=== PATIENT | female | born 1965 | race Caucasian/White ===

== ENCOUNTER 2018-02-05 14:21 | Observation (INO) | payer SELFPAY ==
[~2018-02-05] VITALS: Ht 162.6 cm; Wt 68.0 kg
[~2018-02-05 14:21] MED LIST: ALBU8I INH; CEPH500 PO; LEVE500 PO
[2018-02-05 14:53] VITALS: BP 112/78; PULSE 86; RESP 16; TEMP 98; O2SAT 99
[2018-02-05 16:01] LABS: AUTOMATED NEUTROPHIL # 5.9 TH/MM3 (1.8-7.7); BASOPHIL % 0.6 % (0.0-2.0); EOSINOPHIL % 0.5 % (0.0-4.0); HEMATOCRIT 43.2 % (35.0-46.0); HEMOGLOBIN 15.1 GM/DL (11.6-15.3); LYMPH % 15.9 % (9.0-44.0); LYMPHOCYTE # 1.3 TH/MM3 (1.0-4.8); MEAN CORPUSCULAR HEMOGLOBIN 30.4 PG (27.0-34.0); MEAN CORPUSCULAR HGB CONC 34.9 % (32.0-36.0); MEAN PLATELET VOLUME 7.9 FL (7.0-11.0); MONOCYTE # 0.6 TH/MM3 (0-0.9); PLATELET COUNT 201 TH/MM3 (150-450); RED BLOOD COUNT 4.96 MIL/MM3 (4.00-5.30); WHITE BLOOD COUNT 7.9 TH/MM3 (4.0-11.0)
[2018-02-05 16:09] LABS: ALBUMIN 4.6 GM/DL (3.4-5.0); ALT (GPT) 16 U/L (10-53); AST (GOT) 16 U/L (15-37); BICARBONATE 21.9 MEQ/L (21.0-32.0); BLOOD UREA NITROGEN 14 MG/DL (7-18); CALCIUM 9.3 MG/DL (8.5-10.1); CHLORIDE 103 MEQ/L (98-107); CREATININE 0.87 MG/DL (0.50-1.00); GLOMERULAR FILTRATION RATE 69 ML/MIN (>89); GLUCOSE,RANDOM 90 MG/DL (74-106); SODIUM (NA) 137 MEQ/L (136-145)
[2018-02-05 16:12] LABS: ALKALINE PHOSPHATASE 80 U/L (45-117); TOTAL BILIRUBIN ADULT 0.6 MG/DL (0.2-1.0); TOTAL PROTEIN 8.1 GM/DL (6.4-8.2)
--- NOTE | 2018-02-05 17:23 | RADRPT ---
EXAM DATE/TIME: 02/05/2018 17:02 [place] COMPARISON: CT BRAIN W/O CONTRAST, January 19, 2016, 19:06. INDICATIONS : Altered mental status for three days. RADIATION DOSE: 35.73 CTDIvol (mGy) MEDICAL HISTORY : Cerebrovascular disease. SURGICAL HISTORY : Hernia sx. ENCOUNTER: Initial ACUITY: 3 days PAIN SCALE: 5/10 LOCATION: Bilateral cranial TECHNIQUE: Multiple contiguous axial images were obtained of the head. Using automated exposure control and adj ustment of the mA and/or kV according to patient size, radiation dose was kept as low as reasonably a chievable to obtain optimal diagnostic quality images. DICOM format image data is available electro nically for review and comparison. FINDINGS: CEREBRUM: The ventricles are normal for age. No evidence of midline shift, mass lesion, hemorrhage or acute in farction. No extra-axial fluid collections are seen. POSTERIOR FOSSA: The cerebellum and brainstem are intact. The 4th ventricle is midline. The cerebellopontine angle i s unremarkable. EXTRACRANIAL: The visualized portion of the orbits is intact. SKULL: The calvaria is intact. No evidence of skull fracture. CONCLUSION: 1. No acute intracranial abnormality identified. Ozzy Hearn MD on February 05, 2018 at 17:19 Board Certified Radiologist. This report was verified electronically.
--- NOTE | 2018-02-05 17:40 | PD ---
HPI . Dizziness and syncope Chief Complaint: Dizziness Time Seen by Provider: 16:39 Travel History International Travel<30 days: No Contact w/Intl Traveler<30days: No Traveled to known affect area: No History of Present Illness HPI This patient presents with dizziness and syncope. She had the onset of symptoms yesterday. Her symptoms have included headache, diaphoresis followed by syncope, nausea, blurred vision and global weakness. She has not had any known blood loss. She states that her symptoms are exacerbated by standing and improved by lying down. PFSH Past Medical History Asthma: Yes Blood Disorders: No Bipolar Disorder: Yes Anxiety: No Depression: Yes Cancer: No Cardiovascular Problems: No Chemotherapy: No COPD: Yes Cerebrovascular Accident: Yes Diabetes: No Diminished Hearing: No Endocrine: No Gastrointestinal Disorders: Yes Glaucoma: No Genitourinary: No Headaches: Yes Immune Disorder: No Implanted Vascular Access Dvce: No Musculoskeletal: No Neurologic: Yes ([facility] 01/19/16) Psychiatric: Yes Reproductive: No Respiratory: Yes Integumentary: Yes (cellulitis of left leg) Immunizations Current: Yes Migraines: Yes Radiation Therapy: No Schizophrenia: Yes Seizures: No Sleep Apnea: No Thyroid Disease: No ?: Not Menopausal: Yes : 3 Para: 3 Miscarriage: 1 : 0 Ovarian Cysts: Yes (LEFT SIDE) Tubal Ligation: No Past Surgical History Abdominal Surgery: Yes (hernia (@ 1 month old)) AICD: No Arteriovenous Shunt: No Body Medical Devices: percings Insulin Pump: No Joint Replacement: No Pacemaker: No Social History Alcohol Use: No Tobacco Use: Yes Substance Use: Yes Allergies-Medications (Allergen,Severity, Reaction): Coded Allergies: morphine (Unverified Allergy, Severe, RASH, 07/07/17) penicillin G (Unverified Allergy, Severe, "HIVES & HARD TO BREATHE", ) vancomycin (Unverified Allergy, Intermediate, Rash, 07/07/17) Reported Meds & Prescriptions Reported Meds & Active Scripts Active Review of Systems Except as stated in HPI: all other systems reviewed are Neg General / Constitutional: No: Fever, Chills Eyes: Positive: Blurred Vision HENT: Positive: Headaches, Lightheadedness Gastrointestinal: Positive: Nausea Neurologic: Positive: Weakness Physical Exam Narrative GENERAL: Pale appearing SKIN: warm/dry. HEAD: Normocephalic. Atraumatic. EYES: Pupils equal and round. No scleral icterus. No injection or drainage. Her sclera are pink. ENT: No nasal bleeding or discharge. Mucous membranes pink and moist. NECK: Trachea midline. Full range of motion without pain.. CARDIOVASCULAR: Regular rate and rhythm. Heart sounds are normal. RESPIRATORY: No accessory muscle use. Clear to auscultation. Breath sounds equal bilaterally. GASTROINTESTINAL: Abdomen soft. Nontender. Bowel sounds present. Nondistended. RECTAL: Brown stool in the rectal vault. MUSCULOSKELETAL: No obvious deformities. NEUROLOGICAL: Awake and alert. No obvious cranial nerve deficits. Motor grossly within normal limits. Normal speech. PSYCHIATRIC: Appropriate mood and affect; insight and judgment normal. Data Data Last Documented VS Vital Signs Date Time Temp Pulse Resp B/P (MAP) Pulse Ox O2 Delivery O2 Flow Rate FiO2 02/05/18 14:53 98.0 86 16 112/78 (89) 99 Orders Orders Electrocardiogram (02/05/18 14:56) Complete Blood Count With Diff (02/05/18 14:56) Comprehensive Metabolic Panel (02/05/18 14:56) Ct Brain W/O Iv Contrast(Rout) (02/05/18 16:39) Troponin I (02/05/18 16:39) D-Dimer (02/05/18 16:39) Sodium Chlor 0.9% 1000 Ml Inj (Ns 1000 M (02/05/18 17:45) Prochlorperazine Inj (Compazine Inj) (02/05/18 17:45) Diphenhydramine Inj (Benadryl Inj) (02/05/18 17:45) Labs Laboratory Tests Test 02/05/18 15:12 White Blood Count 7.9 TH/MM3 Red Blood Count 4.96 MIL/MM3 Hemoglobin 15.1 GM/DL Hematocrit 43.2 % Mean Corpuscular Volume 87.0 FL Mean Corpuscular Hemoglobin 30.4 PG Mean Corpuscular Hemoglobin Concent 34.9 % Red Cell Distribution Width 13.0 % Platelet Count 201 TH/MM3 Mean Platelet Volume 7.9 FL Neutrophils (%) (Auto) 75.0 % Lymphocytes (%) (Auto) 15.9 % Monocytes (%) (Auto) 8.0 % Eosinophils (%) (Auto) 0.5 % Basophils (%) (Auto) 0.6 % Neutrophils # (Auto) 5.9 TH/MM3 Lymphocytes # (Auto) 1.3 TH/MM3 Monocytes # (Auto) 0.6 TH/MM3 Eosinophils # (Auto) 0.0 TH/MM3 Basophils # (Auto) 0.0 TH/MM3 CBC Comment DIFF FINAL Differential Comment Blood Urea Nitrogen 14 MG/DL Creatinine 0.87 MG/DL Random Glucose 90 MG/DL Total Protein 8.1 GM/DL Albumin 4.6 GM/DL Calcium Level 9.3 MG/DL Alkaline Phosphatase 80 U/L Aspartate Amino Transf (AST/SGOT) 16 U/L Alanine Aminotransferase (ALT/SGPT) 16 U/L Total Bilirubin 0.6 MG/DL Sodium Level 137 MEQ/L Potassium Level 3.5 MEQ/L Chloride Level 103 MEQ/L Carbon Dioxide Level 21.9 MEQ/L Anion Gap 12 MEQ/L Estimat Glomerular Filtration Rate 69 ML/MIN MDM Medical Decision Making Medical Screen Exam Complete: Yes Emergency Medical Condition: Yes Interpretation(s) EKG shows a sinus rhythm. No acute ST segment changes. Differential Diagnosis My differential diagnosis of syncope includes but is not limited to cardiac arrhythmia, hypovolemia, anemia, neurological catastrophe, vasovagal response Narrative Course This patient presents for the evaluation of weakness with a syncopal episode today. The syncopal episode was preceded by diaphoresis and nausea. In addition to feeling weak and dizzy, she has had a headache and blurred vision. Routine labs were done in triage but did not include a troponin or a d-dimer. CBC & BMP Diagram 02/05/18 15:12 Total Protein 8.1, Albumin 4.6, Calcium Level 9.3, Alkaline Phosphatase 80, Aspartate Amino Transf (AST/SGOT) 16, Alanine Aminotransferase (ALT/SGPT) 16, Total Bilirubin 0.[address] 02/05/18 1639 Signed Impressions: Service Date/Time: Monday, February 05, 2018 17:02 - CONCLUSION: 1. No acute intracranial abnormality identified. Ozzy Hearn MD This patient's care is being turned over to Dr. Partida pending her d-dimer and troponin. [facility] Point of Care Internal Pos. & Neg. Controls: Passed Gastric Specimen Occult Blood: Negative Diagnosis Primary Impression: Syncope Qualified Codes: R55 - Syncope and collapse Condition: Stable Gaby Banerjee MD Feb 05, 2018 17:40
[2018-02-05] MEDS ORDERED: PROCHLORPERAZINE INJ 10 MG/2 ML VIAL IV PUSH ONE (17:45)
[2018-02-05] MEDS ORDERED: diphenhydrAMINE HCL 50 MG/ML VIAL IV PUSH ONE (17:45)
[2018-02-05] MEDS ORDERED: SODIUM CHLOR 0.9% 1000 ML INJ 1,000 ML IV ONE (17:45)
[2018-02-05 17:53] VITALS: BP 132/69; PULSE 79; RESP 20; O2SAT 97
--- NOTE | 2018-02-05 19:21 | PD ---
Data Data Last Documented VS Vital Signs Date Time Temp Pulse Resp B/P (MAP) Pulse Ox O2 Delivery O2 Flow Rate FiO2 02/05/18 17:53 79 20 132/69 (90) 97 Room Air 02/05/18 14:53 98.0 Orders Orders Electrocardiogram (02/05/18 14:56) Complete Blood Count With Diff (02/05/18 14:56) Comprehensive Metabolic Panel (02/05/18 14:56) Ct Brain W/O Iv Contrast(Rout) (02/05/18 16:39) Troponin I (02/05/18 16:39) D-Dimer (02/05/18 16:39) Sodium Chlor 0.9% 1000 Ml Inj (Ns 1000 M (02/05/18 17:45) Prochlorperazine Inj (Compazine Inj) (02/05/18 17:45) Diphenhydramine Inj (Benadryl Inj) (02/05/18 17:45) Labs Laboratory Tests Test 02/05/18 15:12 02/05/18 17:54 White Blood Count 7.9 TH/MM3 Red Blood Count 4.96 MIL/MM3 Hemoglobin 15.1 GM/DL Hematocrit 43.2 % Mean Corpuscular Volume 87.0 FL Mean Corpuscular Hemoglobin 30.4 PG Mean Corpuscular Hemoglobin Concent 34.9 % Red Cell Distribution Width 13.0 % Platelet Count 201 TH/MM3 Mean Platelet Volume 7.9 FL Neutrophils (%) (Auto) 75.0 % Lymphocytes (%) (Auto) 15.9 % Monocytes (%) (Auto) 8.0 % Eosinophils (%) (Auto) 0.5 % Basophils (%) (Auto) 0.6 % Neutrophils # (Auto) 5.9 TH/MM3 Lymphocytes # (Auto) 1.3 TH/MM3 Monocytes # (Auto) 0.6 TH/MM3 Eosinophils # (Auto) 0.0 TH/MM3 Basophils # (Auto) 0.0 TH/MM3 CBC Comment DIFF FINAL Differential Comment Blood Urea Nitrogen 14 MG/DL Creatinine 0.87 MG/DL Random Glucose 90 MG/DL Total Protein 8.1 GM/DL Albumin 4.6 GM/DL Calcium Level 9.3 MG/DL Alkaline Phosphatase 80 U/L Aspartate Amino Transf (AST/SGOT) 16 U/L Alanine Aminotransferase (ALT/SGPT) 16 U/L Total Bilirubin 0.6 MG/DL Sodium Level 137 MEQ/L Potassium Level 3.5 MEQ/L Chloride Level 103 MEQ/L Carbon Dioxide Level 21.9 MEQ/L Anion Gap 12 MEQ/L Estimat Glomerular Filtration Rate 69 ML/MIN Troponin I LESS THAN 0.02 NG/ML D-Dimer Quantitative (PE/DVT) 0.25 MG/L FEU MDM Supervised Visit with JAYLON: No Narrative Course The patient was initially evaluated by the previous provider and signed out to me at the beginning of my shift approximately 5:00 PM pending cardiac enzymes, d -dimer, and likely admission for syncope versus CVA/TIA. Briefly this is a 52-year-old female with a history of intraparenchymal hemorrhage one year ago who presents for evaluation of what sounds to be l a syncopal episode while at work today. The patient describes an episode of vertigo followed by blurred vision and unresponsiveness. On my assessment the patient reports feeling much better than she did upon arrival. She has not been sick with fever or recent illness. No chest pain or dyspnea. Patient is Hemoccult negative according to the previous provider. Vital signs are within normal limits. CBC is unremarkable. CMP is unremarkable. Troponin is negative. D-dimer 0.25. CT head: No acute intracranial abnormality. EKG shows sinus rhythm with minimal ST depressions in inferior leads. The patient was made aware of all findings. She will be admitted for overnight observation for further evaluation of syncope. Case discussed with hospitalist Dr. Renteria who will admit the patient to her service. Diagnosis Primary Impression: Syncope vs TIA Admitting Information Admitting Physician Requests: Observation Condition: Stable Henri Partida MD Feb 05, 2018 19:21
[2018-02-05] MEDS ORDERED: SODIUM CHLOR 0.9% 1000 ML INJ 1,000 ML IV SCH (19:54)
[2018-02-05] MEDS ORDERED: DEXTROSE 50% IN WATER 50 ML VIAL(D50) IV PUSH PRN (20:00)
[2018-02-05] MEDS ORDERED: GLUCAGON 1 MG/ML VIAL OTHER PRN (20:00)
[2018-02-05] MEDS ORDERED: SODIUM CHLORIDE 0.9% FLUSH 10 ML FLUSH IV FLUSH PRN (20:00)
--- NOTE | 2018-02-05 20:05 | HHI.HP ---
HPI Service [facility] Primary Care Physician No Primary Care Physician Admission Diagnosis Syncope vs TIA Diagnoses: Travel History International Travel<30 Days: No Contact w/Intl Traveler <30 Da: No Traveled to Known Affected Are: No History of Present Illness 52-year-old female with a past medical history significant for left intraparenchymal bleed approximately one year ago presents to the emergency department for evaluation of nausea/vomiting/dizziness. The patient reports that for the past 2 days she has had increasing dizziness that has resulted in her feeling nauseated and vomiting approximately 3 times daily. She states the emesis is associated with her dizziness. This is a spells occur when she goes from sitting to standing or when she moves her head. She denies any loss of consciousness. Denies that the room is spinning. Endorses mostly lightheadedness. No associated chest pain or shortness of breath. No lateralizing signs/symptoms. The patient reportedly initially complained of numbness in her hands however she states this has resolved. She also complained of associated blurred vision which also has resolved. No fever/ chills. No diarrhea. 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 Denies alcohol. Occasional marijuana. Denies other illicit drugs. Physical Exam Vital Signs Vital Signs Date Time Temp Pulse Resp B/P (MAP) Pulse Ox O2 Delivery O2 Flow Rate FiO2 02/05/18 17:53 79 20 132/69 (90) 97 Room Air 02/05/18 14:53 98.0 86 16 112/78 (89) 99 Physical Exam GENERAL: female sitting up in bed SKIN: No rashes, ecchymoses or lesions. Cool and dry. HEAD: Atraumatic. Normocephalic. No temporal or scalp tenderness. EYES: Pupils equal round and reactive. Extraocular motions intact. No scleral icterus. No injection or drainage. No nystagmus. ENT: Nose without bleeding, purulent drainage or septal hematoma. Throat without erythema, tonsillar hypertrophy or exudate. Uvula midline. Airway patent. NECK: Trachea midline. No JVD or lymphadenopathy. Supple, nontender, no meningeal signs. CARDIOVASCULAR: Regular rate and rhythm without murmurs, gallops, or rubs. RESPIRATORY: Clear to auscultation. Breath sounds equal bilaterally. No wheezes , rales, or rhonchi. GASTROINTESTINAL: Abdomen soft, non-tender, nondistended. No hepato-splenomegaly , or palpable masses. No guarding. MUSCULOSKELETAL: Extremities without clubbing, cyanosis, or edema. No joint tenderness, effusion, or edema noted. No calf tenderness. Negative Homans sign bilaterally. NEUROLOGICAL: Awake and alert. Cranial nerves II through XII intact. Motor and sensory within normal limits. Five out of 5 muscle strength in all muscle groups. Normal speech. Laboratory Laboratory Tests Test 02/05/18 15:12 02/05/18 17:54 White Blood Count 7.9 Red Blood Count 4.96 Hemoglobin 15.1 Hematocrit 43.2 Mean Corpuscular Volume 87.0 Mean Corpuscular Hemoglobin 30.4 Mean Corpuscular Hemoglobin Concent 34.9 Red Cell Distribution Width 13.0 Platelet Count 201 Mean Platelet Volume 7.9 Neutrophils (%) (Auto) 75.0 Lymphocytes (%) (Auto) 15.9 Monocytes (%) (Auto) 8.0 Eosinophils (%) (Auto) 0.5 Basophils (%) (Auto) 0.6 Neutrophils # (Auto) 5.9 Lymphocytes # (Auto) 1.3 Monocytes # (Auto) 0.6 Eosinophils # (Auto) 0.0 Basophils # (Auto) 0.0 CBC Comment DIFF FINAL Differential Comment Blood Urea Nitrogen 14 Creatinine 0.87 Random Glucose 90 Total Protein 8.1 Albumin 4.6 Calcium Level 9.3 Alkaline Phosphatase 80 Aspartate Amino Transf (AST/SGOT) 16 Alanine Aminotransferase (ALT/SGPT) 16 Total Bilirubin 0.6 Sodium Level 137 Potassium Level 3.5 Chloride Level 103 Carbon Dioxide Level 21.9 Anion Gap 12 Estimat Glomerular Filtration Rate 69 Troponin I LESS THAN 0.02 D-Dimer Quantitative (PE/DVT) 0.25 Result Diagram: 02/05/18 1512 02/05/18 1512 Caprini VTE Risk Assessment Lewrincayetano VTE Risk Assessment: No/Low Risk (score <= 1) Caprini Risk Assessment Model Point Value = 1 Point Value = 2 Point Value = 3 Point Value = 5 Age 41-60 Minor surgery BMI > 25 kg/m2 Swollen legs Varicose veins or History of unexplained or recurrent spontaneous Oral contraceptives or hormone replacement Sepsis (< 1 month) Serious lung disease, including pneumonia (< 1 month) Abnormal pulmonary function Acute myocardial infarction Congestive heart failure (< 1 month) History of inflammatory bowel disease Medical patient at bed rest Age 61-74 Arthroscopic surgery Major open surgery (> 45 min) Laparoscopic surgery (> 45 min) Malignancy Confined to bed (> 72 hours) Immobilizing plaster cast Central venous access Age >= 75 History of VTE Family history of VTE Factor V Leiden Prothrombin [id number] Lupus anticoagulant Anticardiolipin antibodies Elevated serum homocysteine Heparin-induced thrombocytopenia Other congenital or acquired thrombophilia Stroke (< 1 month) Elective arthroplasty Hip, pelvis, or leg fracture Acute spinal cord injury (< 1 month) Prophylaxis Regimen Total Risk Factor Score Risk Level Prophylaxis Regimen 0-1 Low Early ambulation 2 Moderate Order ONE of the following: *Sequential Compression Device (SCD) *Heparin 5000 units SQ BID 3-4 Higher Order ONE of the following medications: *Heparin 5000 units SQ TID *Enoxaparin/Lovenox 40 mg SQ daily (WT < 150 kg, CrCl > 30 mL/min) *Enoxaparin/Lovenox 30 mg SQ daily (WT < 150 kg, CrCl > 10-29 mL/min) *Enoxaparin/Lovenox 30 mg SQ BID (WT < 150 kg, CrCl > 30 mL/min) AND/OR *Sequential Compression Device (SCD) 5 or more Highest Order ONE of the following medications: *Heparin 5000 units SQ TID (Preferred with Epidurals) *Enoxaparin/Lovenox 40 mg SQ daily (WT < 150 kg, CrCl > 30 mL/min) *Enoxaparin/Lovenox 30 mg SQ daily (WT < 150 kg, CrCl > 10-29 mL/min) *Enoxaparin/Lovenox 30 mg SQ BID (WT < 150 kg, CrCl > 30 mL/min) AND *Sequential Compression Device (SCD) Assessment and Plan Assessment and Plan Assessment/plan: 1. Dizziness/blurry vision/can not rule out TIA vs CVA Patient with history of hemorrhagic stroke one year ago CVA workup pending including MRI/MRA brain, carotid ultrasound and echo Neurology consulted, appreciate recommendations Neuro checks Nothing by mouth IV fluids PT 2. Tobacco abuse Patient continues to smoke approximately one half pack per day Cessation counseling provided FEN NPO NS at 70 cc/hr Electrolytes: monitor and replete prn SCDs Lottie Renteria MD Feb 05, 2018 20:05
[2018-02-05] MEDS ORDERED: SODIUM CHLORIDE 0.9% FLUSH 10 ML FLUSH IV FLUSH SCH (21:00)
[2018-02-05] MEDS ORDERED: INSULIN ASPART SUPPLEMENTAL SCALE SQ SCH (21:00)
[2018-02-05] MEDS ORDERED: ATORVASTATIN 10 MG TAB PO SCH (21:00)
[2018-02-05 22:08] LABS: HEMOGLOBIN A1C 5.1 % (4.3-6.0)
--- NOTE | 2018-02-06 17:08 | EKG ---
Date Performed: 02/05/2018 Time Performed: 16:10:10 PTAGE: 52 years EKG: Within normal limits Since previous tracing, no significant change noted. The slight right ventricular disturbance remains. BORDERLINE ECG PREVIOUS TRACING : 11/23/2013 02.57 DOCTOR: Ran Manning Interpretating Date/Time 02/06/2018 17:07:44
== END 2018-02-05 20:10 | disposition left against medical advice (07) ==
LOC: NEPD 14:21 → NEDA 19:49
PROVIDERS: ADMIT Family Medicine; ATTEND Family Medicine
DX: R42 Dizziness and giddiness (principal); R55 Syncope and collapse; R51 Headache; R61 Generalized hyperhidrosis; R53.1 Weakness; H53.8 Other visual disturbances; R41.82 Altered mental status, unspecified; R20.0 Anesthesia of skin; J44.9 Chronic obstructive pulmonary disease, unspecified; F31.9 Bipolar disorder, unspecified; R79.89 Other specified abnormal findings of blood chemistry; F20.9 Schizophrenia, unspecified; F17.200 Nicotine dependence, unspecified, uncomplicated; F12.90 Cannabis use, unspecified, uncomplicated; Z86.73 Personal history of transient ischemic attack (TIA), and cerebral infarction without residual deficits
CPT/HCPCS: 70450; 80053; 83036; 84484; 85025; 85379; 93005; 96361; 96374; 96375; 99285; J0780; J1200; J7030

== ENCOUNTER 2018-02-15 12:45 | Emergency (ER) | payer SELFPAY ==
[2018-02-15 13:35] VITALS: BP 125/81; PULSE 70; RESP 16; TEMP 97.9; O2SAT 98
--- NOTE | 2018-02-15 15:53 | PD ---
HPI Chief Complaint: Medical Clearance Time Seen by Provider: 15:27 Travel History International Travel<30 days: No Contact w/Intl Traveler<30days: No Traveled to known affect area: No History of Present Illness HPI 52-year-old female presents to the emergency room requesting a note to return to work. Patient was seen here 10 days ago for dizziness. States while at work she became overheated and felt lightheaded. She came to the hospital on an ambulance for near syncope and had a negative emergency workup. She was admitted overnight for 23 hour observation, MRI, MRA, carotid ultrasound, and neurology consult but left AGAINST MEDICAL ADVICE. Patient states she became anxious because the last time she had to stay in the hospital was for hemorrhagic stroke 1 year ago. She has not been able to work for the past 10 days. States her boss will not let her return to work until she has a note for clearance. Patient states she had a one-time episode 10 days ago and has not had any symptoms since then. States she feels fine. She is crying stating she needs to return to work because it is her only income and she has become homeless as a result of being out of work. PFSH Past Medical History Asthma: Yes Blood Disorders: No Bipolar Disorder: Yes Anxiety: No Depression: Yes Cancer: No Cardiovascular Problems: No Chemotherapy: No COPD: Yes Cerebrovascular Accident: Yes Diabetes: No Diminished Hearing: No Endocrine: No Gastrointestinal Disorders: Yes Glaucoma: No Genitourinary: No Headaches: Yes Immune Disorder: No Implanted Vascular Access Dvce: No Musculoskeletal: No Neurologic: Yes ([facility] 01/19/16) Psychiatric: Yes Reproductive: No Respiratory: Yes Integumentary: Yes (cellulitis of left leg) Immunizations Current: Yes Migraines: Yes Radiation Therapy: No Schizophrenia: Yes Seizures: No Sleep Apnea: No Thyroid Disease: No Tetanus Vaccination: > 5 Years ?: Not Menopausal: Yes : 3 Para: 3 Miscarriage: 1 : 0 Ovarian Cysts: Yes (LEFT SIDE) Tubal Ligation: No Past Surgical History Abdominal Surgery: Yes (hernia (@ 1 month old)) AICD: No Arteriovenous Shunt: No Body Medical Devices: percings Insulin Pump: No Joint Replacement: No Pacemaker: No Social History Alcohol Use: No Tobacco Use: Yes Substance Use: Yes Allergies-Medications (Allergen,Severity, Reaction): Coded Allergies: morphine (Unverified Allergy, Severe, RASH, 3/26/18) penicillin G (Unverified Allergy, Severe, "HIVES & HARD TO BREATHE", ) vancomycin (Unverified Allergy, Intermediate, Rash, 02/15/18) Reported Meds & Prescriptions Reported Meds & Active Scripts Active No Active Prescriptions or Reported Medications Review of Systems Except as stated in HPI: all other systems reviewed are Neg Physical Exam Narrative GENERAL: Well-nourished, well-developed female no acute distress. Afebrile. Ambulatory. SKIN: Focused skin assessment warm/dry. HEAD: Normocephalic. EYES: No scleral icterus. No injection or drainage. NECK: Supple, trachea midline. No JVD or lymphadenopathy. CARDIOVASCULAR: Regular rate and rhythm without murmurs, gallops, or rubs. RESPIRATORY: Breath sounds equal bilaterally. No accessory muscle use. NEUROLOGICAL: Awake and alert. Cranial nerves II through XII intact. Motor and sensory grossly within normal limits. Five out of 5 muscle strength in all muscle groups. Normal speech. Data Data Last Documented VS Vital Signs Date Time Temp Pulse Resp B/P (MAP) Pulse Ox O2 Delivery O2 Flow Rate FiO2 02/15/18 13:35 97.9 70 16 125/81 (96) 98 Orders Orders Ed Discharge Order (02/15/18 15:44) MDM Medical Decision Making Medical Screen Exam Complete: Yes Emergency Medical Condition: Yes Medical Record Reviewed: Yes Differential Diagnosis Medical clearance, normal examination, dizziness, headache Narrative Course 52-year-old female presents to the emergency room requesting a note to return to work. Patient had an episode of dizziness and lightheadedness while at work and came to the emergency room. She had a negative workup. She was admitted for 23 hour observation to evaluate for stroke but left AGAINST MEDICAL ADVICE because she became anxious while in the hospital. Patient states she has been completely asymptomatic since then. She had no episodes prior to that episode. Physical exam today is reassuring. Patient resting comfortably. Vital signs stable. Patient began crying stating that she needs to return to work so she is not homeless because it is "the only thing I have." Given that she has been asymptomatic for 10 days, attributes her dizziness to being overheated, and had a normal workup 10 days ago, I will clear her to return to work. I spoke to my attending physician, Dr. Banerjee, who agrees patient can return to work. She has an appointment with her primary care physician on July 18. Told to return sooner for worsening symptoms. She understands and agrees to plan. Diagnosis Primary Impression: Dizziness Referrals: Primary Care Physician Departure Forms: Tests/Procedures, Work Release Enter return to work date: Feb 16, 2018 Med/Other Pt SpecificInfo: Prescription(s) given Scripts No Active Prescriptions or Reported Meds Disposition: DISCHARGE HOME Condition: Stable Татьяна Bernabe Feb 15, 2018 15:53
== END 2018-02-15 16:02 | disposition home or self-care (01) ==
LOC: NED 12:45 → NEPK 16:02
DX: R42 Dizziness and giddiness (principal)
CPT/HCPCS: 99281